=== PATIENT | male | born 1955 | race Caucasian/White ===

== ENCOUNTER → 2017-02-10 | Outpatient (CLI) | payer BC ==
[~2017-02-10] MED LIST: IBUP-1050 PO
[2017-02-10 17:42] LABS: ALT/SGPT 28 U/L (12-78); BLOOD UREA NITROGEN 16 mg/dl (7-18); BUN/CREATININE RATIO 16.2 (10-20); CALCIUM 8.8 mg/dl (8.5-10.1); CARBON DIOXIDE 28 mmol/L (21-32); CHLORIDE 108 mmol/L (98-107); CHOLESTEROL 218 mg/dl (0-200); CREATININE 0.99 mg/dl (0.60-1.40); GLUCOSE 98 mg/dl (70-99); POTASSIUM 4.2 mmol/L (3.5-5.1); SODIUM 139 mmol/L (136-145)
[2017-02-10 17:53] LABS: ALB/GLOB RATIO 1.1 (0.9-2); ALKALINE PHOSPHATASE 58 U/L (45-117); AST/SGOT 17 U/L (15-37); CHOLESTEROL/HDL RATIO 5.1; HDL CHOLESTEROL 43 mg/dl; LDL CHOLESTEROL CALCULATED 152 mg/dl; THYROID STIMULATING HORMONE 0.536 uIu/ml (0.300-4.500); TRIGLYCERIDES 115 mg/dl (0-150); VERY LOW DENSITY LIPOPROT CALC 23 mg/dl
== END | disposition home or self-care (01) ==
LOC: C.LABBFT 11:36
PROVIDERS: ATTEND Physician Assistant Medical
DX: E78.00 Pure hypercholesterolemia, unspecified (principal); Z12.5 Encounter for screening for malignant neoplasm of prostate

== ENCOUNTER → 2017-02-14 | Outpatient (CLI) | payer BC ==
--- NOTE | 2017-02-14 13:19 | DIAGNOSTIC IMAGING REPORT ---
RIGHT SHOULDER 3 VIEWS HISTORY: Right shoulder pain. COMPARISON: None. FINDINGS: There is no fracture or dislocation. Soft tissues are unremarkable. The right clavicle is intact. Mild osteoarthritis within the glenohumeral and acromioclavicular joints demonstrated by mild cartilage space narrowing and small marginal osteophytes. IMPRESSION: No fractures. Mild osteoarthritis within the right shoulder. Electronically signed by: Brandin Lorenz M.D. 02/14/2017 1:18 PM Dictated Date/Time: 02/14/2017 1:17 PM
== END | disposition home or self-care (01) ==
LOC: C.RAD 12:44
PROVIDERS: ATTEND Physician Assistant Medical
DX: M25.511 Pain in right shoulder (principal)

== ENCOUNTER → 2017-10-05 | Outpatient (CLI) | payer OTHER | END | disposition home or self-care (01) | LOC: C.LABBFT 11:39 | PROVIDERS: ATTEND Physician Assistant Medical | DX: E78.00 Pure hypercholesterolemia, unspecified (principal) ==

== ENCOUNTER → 2017-11-16 | Outpatient (CLI) | payer OTHER | END | disposition home or self-care (01) | LOC: C.PATHSPEC 17:30 | PROVIDERS: ATTEND Plastic Surgery | DX: L83 Acanthosis nigricans (principal); L57.8 Other skin changes due to chronic exposure to nonionizing radiation ==

== ENCOUNTER → 2018-02-08 | Day surgery (SDC) | payer OTHER ==
[2018-02-06 08:39] VITALS: BMI 31.0
[~2018-02-08] VITALS: Ht 182.9 cm; Wt 105.9 kg
[~2018-02-08] MED LIST changes: +ACET-1256 PO; -IBUP-1050 PO; +LIDOCAINE HCL 2% 2 ML VIAL (20MG/ML) ONE; +NAPR1TAB9 PO; +ONDANSETRON INJ 2 MG/ML 2 ML VIAL ONE; +PROPOFOL IV EMULSION 10 MG/ML 20 ML VIAL ONE; +SODIUM CHLORIDE 0.9% 500ML 500 ML IV ONE
[2018-02-08 12:24] VITALS: Ht 182.9 cm; Wt 105.9 kg
--- NOTE | 2018-02-08 12:45 | Endo History and Physical ---
History & Physical Date of Service: Feb 08, 2018. Chief Complaint: HX OF POLYPS Referring Physician: DR MASTERS History of Present Illness 62 yo CM who presents for colonoscopy secondary to history of colon polyps. Past Medical History High Cholesterol Past Surgical History Hx Cardiac Surgery: No Hx Internal Defibrillator: No Hx Pacemaker: No Hx Abdominal Surgery: No Hx of Implantable Prosthesis: No Hx Post-Op Nausea and Vomiting: No Hx Cancer Surgery: No Hx Thoracic Surgery: No Hx Orthopedic: No Hx Urinary Tract Surgery: No Family History Colon CA Social History Smoking Status: Never Smoker Hx Substance Use: No Hx Alcohol Use: Yes (APPROX 2-3 BEERS PER A DAY) Allergies Coded Allergies: No Known Drug Allergy (Verified Allergy, Unknown, NKDA, 02/08/18) Current Medications Reported Home Medications Medications Dose Route/Sig Max Daily Dose Days Date Category Aleve (Naproxen) 220 Mg Tab 220 Mg PO DAILY PRN 02/06/18 Reported Tylenol (Acetaminophen) 500 Mg Tab 500 Mg PO Q6 PRN 02/06/18 Reported Vital Signs Weight (Kilograms): 105.91 Height (Feet): 6 Height (Inches): 0 Date Time Temp Pulse Resp B/P (MAP) Pulse Ox O2 Delivery O2 Flow Rate FiO2 02/08/18 12:28 36.8 69 18 129/91 (104) 97 Room Air Physical Exam General Appearance: WD/WN, no apparent distress Respiratory/Chest: Auscultation: breath sounds normal Cardiovascular: Heart Auscultation: RRR Abdomen: Bowel Sounds: normal Inspection & Palpation: soft, non-distended, no tenderness, guarding & rebound Assessment and Plan Assessment: 62 yo CM who presents for colonoscopy secondary to history of colon polyps. Plan: Proceed with colonoscopy.
--- NOTE | 2018-02-08 13:26 | Discharge Instructions ---
Endoscopy Patient Instructions Date / Procedure(s) Performed Feb 08, 2018. Colonoscopy Allergy Information Coded Allergies: No Known Drug Allergy (Verified Allergy, Unknown, NKDA, 02/08/18) Discharge Date / Findings Feb 08, 2018. Colon polyp Diverticulosis Internal hemorroids Medication Instructions OK to resume all medications today as prescribed Reported Home Medications Medications Dose Route/Sig Max Daily Dose Days Date Category Aleve (Naproxen) 220 Mg Tab 220 Mg PO DAILY PRN 02/06/18 Reported Tylenol (Acetaminophen) 500 Mg Tab 500 Mg PO Q6 PRN 02/06/18 Reported Provider Instructions Activity Restrictions - No exercising or heavy lifting for 24 hours. - Do not drink alcohol the day of the procedure. - Do not drive a car or operate machinery until the day after the procedure. - Do not make any important decisions or sign important papers in 24 hours after the procedure. Following Day: - Return to full activity which may include returning to work/school. Diet Start your diet with liquids and light foods (jello, soup, juice, toast). Then eat your usual diet if not nauseated. Treatment For Common After Affects For mild abdominal pain, bloating, or excessive gas: - Rest - Eat lightly - Lie on right side Follow-Up Information Follow-up with DR MASTERS as scheduled Anesthesia Information What You Should Know You have had a procedure that required some medicine to reduce anxiety and discomfort. This treatment is called moderate sedation. After receiving the treatment, you may be sleepy, but you will be able to breathe on your own. The effects of the treatment may last for several hours. Follow these instructions along with Activity/Diet recommendations noted above: * Do NOT do anything where dizziness or clumsiness would be dangerous. * Rest quietly at home today, then you can be up and about tomorrow. * Have a responsible person stay with you the rest of today. * You may have had an I.V. today. If so, you may take the dressing off later today. Recommendations Call your doctor if: * Trouble breathing * Continuous vomiting for more than 24 hours * Temperature above 101 degrees * Severe abdominal pain or bloating * Pain not relieved by pain medicine ordered * There is increased drainage or redness from any incision * A large amount of rectal bleeding greater than 2-3 tablespoons. (If you had a polyp/s removed or have hemorrhoids, a small amount of blood - from the rectum is to be expected.) * You have any unanswered questions or concerns. IN THE EVENT OF A SERIOUS EMERGENCY, GO TO THE NEAREST EMERGENCY ROOM Your discharge instructions were prepared by provider Felix Polo. Patient Instructions Signature Page Aamir Edgaron Patient (or Guardian) Signature/Date: I have read and understand the instructions given to me by my caregivers. Caregiver/RN/Doctor Signature/Date: The above-named patient and/or guardian has received patient instructions on this date. + Original Patient Signature Page (only) stays with chart. Please make copy for patient.
--- NOTE | 2018-02-08 13:50 | Anesthesiology Progress Note ---
Anesthesia Post Op Note Date & Time Feb 08, 2018 at 13:50 Vital Signs Pain Intensity: 0 Vital Signs Past 12 Hours Date Time Temp Pulse Resp B/P (MAP) Pulse Ox O2 Delivery O2 Flow Rate FiO2 02/08/18 13:44 64 16 125/75 (92) 95 Room Air 02/08/18 13:28 65 14 111/63 (79) 94 Room Air 02/08/18 12:28 36.8 69 18 129/91 (104) 97 Room Air Notes Mental Status: alert / awake / arousable, participated in evaluation Pt Amnestic to Procedure: Yes Nausea / Vomiting: adequately controlled Pain: adequately controlled Airway Patency, RR, SpO2: stable & adequate BP & HR: stable & adequate Hydration State: stable & adequate Anesthetic Complications: no major complications apparent
[2018-02-08 14:01] VITALS: BP 120/72; PULSE 58; O2SAT 95
--- NOTE | 2018-02-08 14:40 | GI REPORT ---
Patient Name: Aamir Durham Procedure Date: 02/08/2018 12:56 PM Date of : 1955 Admit Type: Outpatient Age: 62 Gender: Male Attending MD: Felix Polo DO Procedure: Colonoscopy Providers: Felix Polo DO Referring MD: Hari Graf Indications: High risk colon cancer surveillance: Personal history of colonic polyps Medicines: Monitored Anesthesia Care Complications: No immediate complications. Estimated Blood Loss: Estimated blood loss: none. Procedure: Pre-Anesthesia Assessment: - Prior to the procedure, a History and Physical was performed, and patient medications and allergies were reviewed. The patient's tolerance of previous anesthesia was also reviewed. The risks and benefits of the procedure and the sedation options and risks were discussed with the patient. All questions were answered, and informed consent was obtained. Prior Anticoagulants: The patient has taken no previous anticoagulant or antiplatelet agents. ASA Grade Assessment: II - A patient with mild systemic disease. After reviewing the risks and benefits, the patient was deemed in satisfactory condition to undergo the procedure. After I obtained informed consent, the scope was passed under direct vision. Throughout the procedure, the patient's blood pressure, pulse, and oxygen saturations were monitored continuously. The scope was introduced through the anus and advanced to the terminal ileum. The colonoscopy was performed without difficulty. The patient tolerated the procedure well. The quality of the bowel preparation was good. The terminal ileum, ileocecal valve, appendiceal orifice, and rectum were photographed. Findings: The perianal and digital rectal examinations were normal. A 4 mm polyp was found in the sigmoid colon. The polyp was sessile. The polyp was removed with a hot snare. Resection and retrieval were complete. Multiple small-mouthed diverticula were found in the sigmoid colon. Non-bleeding internal hemorrhoids were found during retroflexion. The hemorrhoids were small. Impression: - One 4 mm polyp in the sigmoid colon, removed with a hot snare. Resected and retrieved. - Diverticulosis in the sigmoid colon. - Non-bleeding internal hemorrhoids. Recommendation: - Resume previous diet. - Continue present medications. - Repeat colonoscopy for surveillance based on pathology results. - Return to primary care physician as previously scheduled. Felix Polo DO 02/08/2018 2:40:15 PM This report has been signed electronically. Note Initiated On: 02/08/2018 12:56 PM Number of Addenda: 0 I attest to the content of the Intraoperative Record and orders documented therein, exceptions below {[id number]}
== END | disposition home or self-care (01) ==
LOC: C.GI 12:11
PROVIDERS: ATTEND Internal Medicine
DX: Z12.11 Encounter for screening for malignant neoplasm of colon (principal); K63.5 Polyp of colon; K57.30 Diverticulosis of large intestine without perforation or abscess without bleeding; K64.8 Other hemorrhoids; M19.90 Unspecified osteoarthritis, unspecified site; Z86.010 Personal history of colon polyps; Z68.31 Body mass index [BMI] 31.0-31.9, adult; E66.9 Obesity, unspecified

== ENCOUNTER 2022-07-18 09:36 | Observation (INO) ==
--- NOTE | 2022-06-27 14:44 | PAT Medication Instructions ---
Medication Instructions Date of Service June 27, 2022 Home Medications Medication Instructions Recorded acetic acid 2 % ear solution 5 drp otic (ear) TID 5 days #15 mL 03/09/22 amoxicillin 875 mg-potassium 1 tab PO BID 7 days #14 tabs 03/09/22 clavulanate 125 mg tablet tadalafil 5 mg tablet (Cialis) 5 mg PO DAILY PRN sexual activity 03/28/22 #6 tabs Wheeled Walker #1 ea 06/13/22 methocarbamol 500 mg tablet 500 mg PO TID #20 tabs 06/27/22 acetic acid 2 % ear solution 5 drp otic (ear) TID 5 days amoxicillin 875 mg-potassium clavulanate 125 mg tablet 1 tab PO BID 7 days tadalafil 5 mg tablet (Cialis) 5 mg PO DAILY PRN sexual activity acetaminophen 325 mg tablet (Tylenol) 650 mg PO QID PRN Pain methocarbamol 500 mg tablet 500 mg PO TID rosuvastatin 10 mg tablet (Crestor) 10 mg PO QAM Continue as directed acetic acid 2 % ear solution 5 drp otic (ear) TID 5 days amoxicillin 875 mg-potassium clavulanate 125 mg tablet 1 tab PO BID 7 days STOP taking 24 hours before surgery tadalafil 5 mg tablet (Cialis) 5 mg PO DAILY PRN sexual activity DO NOT take the morning of surgery methocarbamol 500 mg tablet 500 mg PO TID Take morning of surgery With a small sip of water, OTHERWISE NOTHING TO EAT OR DRINK AFTER MIDNIGHT: acetaminophen 325 mg tablet (Tylenol) 650 mg PO QID PRN Pain (if needed) rosuvastatin 10 mg tablet (Crestor) 10 mg PO QAM Take evening before surgery methocarbamol 500 mg tablet 500 mg PO TID acetaminophen 325 mg tablet (Tylenol) 650 mg PO QID PRN Pain (if needed) Other Notes If you have any questions please call us at [phone] or [phone] or [phone] or [phone]
--- NOTE | 2022-07-04 12:18 | Anesthesiology Consultation ---
Date of Service July 04, 2022 Assessment & Plan (1) Encounter for pre-operative examination: - Outpatient joint assessment: Patient is currently scheduled for inpatient pathway. If re-evaluated pending system levels during current pandemic/surgeon requests outpatient pathway, patient is acceptable candidate for outpatient joint program from anesthesia standpoint pending surgeon's office assessment of pt motivation/support/completion of same day joint program preop requirements. Chart Review Chart Review: Acceptable Risk for Surgery and Patient seen in Pre Admission Testing Teaching & Discussion Pre-Anesthesia Teaching/Discussion Notes: Instructed NPO after midnight before surgery, except medications with 15 cc of water. Medication instructions provided according to the PAT guidelines. History Surgery Operation Date: 07/18/22 10:40 Proposed Procedures p Right Total Knee Arthroplasty - Brett Toney MD Height/Weight Height: 6 ft 1 in Weight: 107.955 kg Allergies Allergy/AdvReac Type Severity Reaction Status Date / Time No Known Drug Allergies Allergy Unknown NKDA Verified 06/27/22 10:47 Medications Home Medications Medication Instructions Recorded Confirmed Last Taken tadalafil 5 mg tablet (Cialis) 5 mg PO DAILY PRN sexual activity 03/28/22 06/27/22 Unknown #6 tabs Wheeled Walker #1 ea 06/13/22 06/13/22 Unknown acetaminophen 325 mg tablet 650 mg PO QID PRN Pain 06/27/22 06/27/22 Unknown (Tylenol) methocarbamol 500 mg tablet 500 mg PO TID #20 tabs 06/27/22 Unknown rosuvastatin 10 mg tablet (Crestor) 10 mg PO QAM 06/27/22 06/27/22 Unknown Past Medical History Medical History (Updated 07/04/22 @ 12:38 by Bobbi Cook PA-C) GERD (gastroesophageal reflux disease) rare, controlled, stable per pt Gout hx of History of COVID-11 Feb 2022 > mild symptoms Hypercholesteremia Tubular adenoma of colon (2009) Patient denies h/o stroke, seizures, heart attack, heart failure, DM, HTN, blood clots or blood transfusions. Exercise / Class Metabolic Activity II 4-5 Yardwork/Stairs/Walk up hill (denies CP or SOB with 1 FOS) Past Family History Family History Father Bladder cancer Alzheimer disease Grandfather Acute myocardial infarction Myocardial infarction Uncle Acute myocardial infarction Son Testicular cancer Brother Colon cancer Denies family history of Ovarian cancer Prostate cancer Breast cancer Past Surgical History Surgical History History of colonoscopy (02/08/18) Dr Christ, one hyperplastic polyp, repeat 5 years due to 4 adenomas in 2009 and brother with colon CA History of tonsillectomy History of tooth extraction Past Anesthesia History No Hx of Anesthesia Complications and No Family Hx of Anesthesia Complications History of PONV No Hx of PONV and No Hx of Motion Sickness Social History Smoking Status: Never smoker Do You Dip or Chew Tobacco: No (hx of ) Hx Alcohol Use: Yes Alcohol type: beer alcohol intake frequency: a few times a week Hx Substance Use: No substance use type: does not use Review of Systems Snoring, denies witnessed apneas. Patient denies chest pain, shortness of breath, dyspnea on exertion, fever, chills, cough, wheezing, or palpitations. Physical Exam Vital Signs Vitals BP 134/77 P 66 TEMP 98.4 SP02 98% on RA RESP 18 Physical Full cervical extension range of motion without pain TMD < 3 finger breadths Mallampati Score 2 Dentition: several loose crowns; denies chipped teeth, implants or bridges Lungs: normal respiratory effort. Clear throughout to auscultation, no adventitious breath sounds Cardiac: regular rate and rhythm, no murmurs noted Carotid arteries: negative bruit bilat Lab Results Anesthesia Preop Results Results Anesthesia Widget: WBC 4.63 K/ul (4.8-10.8) L 07/04/22 Hgb 14.2 g/dl (14.0-18.0) 07/04/22 Hct 40.5 % (40.1-51.0) 07/04/22 Plt 167 K/uL (130-400) 07/04/22 Na 140 mmol/L (136-145) 07/04/22 K 3.9 mmol/L (3.5-5.1) 07/04/22 Cl 107 mmol/L (98-107) 07/04/22 CO2 30 mmol/L (21-32) 07/04/22 BUN 15 mg/dl (6-23) 07/04/22 Creat 0.90 mg/dl (0.6-1.4) 07/04/22 Glucose Level 131 mg/dl (70-99(Fasting)) H 07/04/22 PT 11.1 Seconds (9.0-12.0) 07/04/22 PTT 27.9 Seconds (21.0-31.0) 07/04/22 INR 1.0 (0.9-1.1) 07/04/22 Blood Type O Negative 07/04/22 Antibody Screen NEGATIVE 07/04/22 Testing Electrocardiogram Date: 07/04/22 NSR, rate 62 bpm Chest X-Ray Date: 07/04/22 Lung volumes are normal. Lungs are clear. There is no pneumothorax or pleural effusion. Cardiac size is normal. Mediastinal contours are normal. There is no evidence for pulmonary edema. IMPRESSION: No acute cardiopulmonary findings. COVID-19 Risk Screen Screening Information COVID-19 Screen Date: 07/04/22 Exposure 21 Days Family/Household +COVID Last 21 Days: No Exposure 10 Days Any COVID Exposure Last 10 Days: No Symptoms Last 10 Days Experienced COVID Sx Last 10 Days: No + COVID 0-90 Days COVID + in Last 0-90 Days: No
--- NOTE | 2022-07-15 11:53 | History and Physical Report ---
DATE OF ADMISSION: 07/18/2022. CHIEF COMPLAINT: Persistent right knee pain, discomfort and swelling. HISTORY OF PRESENT ILLNESS: The patient is a 67-year-old gentleman who presents for surgical treatme nt of his right knee. He has about a year and a half history of progressively increasing right knee pain and discomfort and recurrent swelling. We had his knee aspirated and injected on multiple visit s, which has become less successful over time. The knee continues to swell up. He has had extensive workup including infection and crystal analysis, which has been negative along with a Lyme test. He now like to have his knee fixed. PAST MEDICAL HISTORY: Significant for: 1. Alcohol use, 8-10 drinks per week. 2. Low back pain/sciatica. PAST SURGICAL HISTORY: None. ALLERGIES: None. CURRENT MEDICATIONS: Include: 1. Rosuvastatin. 2. Calcium. SOCIAL HISTORY: A 67-year-old male. Fairly active. Does not smoke. 8-10 drinks per week. FAMILY HISTORY: Noncontributory. REVIEW OF SYSTEMS: Negative for diabetes, neurologic problem, vascular problem, or bleeding disorder s. No chest pain or shortness of breath. No history of DVT or PE. PHYSICAL EXAMINATION: GENERAL: Shows a pleasant middle-aged male. Looks pretty good health. Looks younger than his state d age. HEENT: Benign. NECK: Supple. No lymphadenopathy. LUNGS: Clear to auscultation. HEART: Regular rate and rhythm. ABDOMEN: Soft, nontender, nondistended. EXTREMITIES: Grossly neurovascularly intact except as follows. Examination of the right knee reveals the patient walks independently with minimal if any limp. He w alks a little bit stiff legged. He has got a tense effusion in his knee. Range of motion is 0-90 de grees, limited by the tense ____ effusion. No instability. No pain with hip motion. X-RAYS: Four views of the knee were reviewed. It shows advanced right knee degenerative joint disea se. He has got near complete loss of his medial joint space. This has progressed since his previous films. ASSESSMENT: A 67-year-old male with recurrent right knee pain and discomfort, swelling and effusions , unresponsive to conservative care. X-rays have showed progressive knee arthritis. His infectious workup was negative for ____ crystalline disease. He would like to have his knee fixed. PLAN: We will take him to the operating room and do a right total knee replacement. The risks and b enefits of this procedure were explained to the patient and include but not limited to DVT, PE, , infection, neurological injury, vascular injury, bleeding problem, pain, limited range of motion, s tiffness, failure to relieve symptoms, incomplete relief of symptoms, etc. The patient understands a nd desires to proceed. Informed consent was obtained. He does have significant alcohol use. We may need DVT prophylaxis. He is planning to be discharged to home using [facility] program. Job ID: [id number]
[~2022-07-18 09:36] MED LIST changes: -ACET-1256 PO; +ACETAMINOPHEN 500 MG TAB PO SCH; +BUPIVACAINE 0.5 % 5 MG/1 ML PF 10ML VIAL ONE; +BUPIVACAINE LIPOSOME/PF 266 MG, BUPIVACAINE/EPINEPHRINE 50 ML, SODIUM CHLORIDE 0.9% 30 ... INFIL SCH; +CeleBREX 200 MG CAP PO SCH; +FAMOTIDINE 20 MG TAB PO SCH; -LIDOCAINE HCL 2% 2 ML VIAL (20MG/ML) ONE; +LR 500ML BOLUS, THEN 15ML/HR IV SCH; +LR 60ML/HR IV SCH; +METOCLOPRAMIDE HCL 10 MG TABLET PO SCH; -NAPR1TAB9 PO; -ONDANSETRON INJ 2 MG/ML 2 ML VIAL ONE; -PROPOFOL IV EMULSION 10 MG/ML 20 ML VIAL ONE; +ROPIVACAINE 0.5% 5 MG/ML 30 ML VIAL ONE; -SODIUM CHLORIDE 0.9% 500ML 500 ML IV ONE; +Scopolamine 1 MG TDSY TD SCH; +TRANEXAMIC ACID 1,000 MG **IV Intra-op IV SCH; +ceFAZolin 2000MG 2,000 MG/15 ML SYR IV SCH
[2022-07-18] MEDS ORDERED: MIDAZOLAM HCL 1 MG/ML 2ML VIAL ONE (09:59)
[2022-07-18] MEDS ORDERED: BUPIVACAINE/EPINEPHRINE 0.25% 1:200,000 30 ML VIAL ONE (11:22)
[2022-07-18] MEDS ORDERED: SODIUM CHLORIDE 0.9% PF 50 ML VIAL ONE (11:22)
[2022-07-18] MEDS ORDERED: BUPIVACAINE LIPOSOME 1.3% 266 MG/20 ML VIAL ONE (11:22)
[2022-07-18] MEDS ORDERED: PROPOFOL IV EMULSION 10 MG/ML 20 ML VIAL IV ONE (11:26)
--- NOTE | 2022-07-18 11:29 | History & Physical Bridge Note ---
Date of Service July 18, 2022 History & Physical Bridge Note I have examined the patient, reviewed the History & Physical and in the interval since the performance of the History & Physical I have noted the following changes of clinical significance: no changes noted
[2022-07-18] MEDS ORDERED: LIDOCAINE 2% MPF LOCAL 5 ML VIAL INFIL ONE (13:12)
--- NOTE | 2022-07-18 13:35 | Operative Report ---
PG Post Operative Report Pre & Post Diagnosis Operation Date: 07/18/22 12:30 Pre-Op Diagnosis: Right Knee Degenerative Joint Disease Post-Op Diagnosis: Right Knee Degenerative Joint Disease I identified the patient and participated in the time-out.: Yes Procedure Operation Date: 07/18/22 12:30 Actual Procedures p Right Total Knee Arthroplasty(Right) - Brett Toney MD Surgeon Brett Toney MD Recreation Programmer Chuy Arce PA-C Estimated Blood Loss 50 Findings Consistent with Post-Op Diagnosis Operative findings revealed advanced right knee DJD. He had a pretty extensive grade 4 [id number] disease of the medial compartment. He had some spotty grade 4 changes of the lateral and patellofemoral compartments. He had a varus deformity to his knee. Very large benign-appearing knee joint effusion. Fluids 1200 cc Specimens Right knee sent for pathology Drains None Complications none Disposition Accompanied Patient To Recovery: No Indications Patient is 67-year-old very active gentleman has had a several year history of increasing right knee pain discomfort is got significant worse over the past 6 months. She had recurrent effusions and which are unresponsive conservative care. X-rays show progressive medial compartment arthritis. He elected proceed with surgical treatment. He did have an extensive work-up for inflammatory type diseases which was all negative. Description of Procedure Operative implants consist of: 1 Biomet Vanguard size 75 right posterior stabilized femoral component. 2. Biomet size 70 tibial tray. 3. 12 mm posterior stabilized polyethylene insert. 4. 34 x 8 and half all Paller patella. The patient was taken the operating, identified, placed on the operating table supine position. All contact areas were appropriately padded. IV antibiotics arrived by anesthesia team. Spinal anesthetic was implemented along with an abductor canal block in the holding area. Massey catheter was placed in sterile fashion. Right thigh tourniquet was then placed. The right lower extremity was then prepped and draped in the usual sterile fashion. The right leg was elevated and exsanguinated with use of an Esmarch and the tourniquet was placed at 300 mmHg. An anterior approach of the right knee was then performed to longitudinal incision centered over the patella. Sharp dissection was carried through subcutaneous tissue down the extensor mechanism. A medial parapatellar arthrotomy incision was made. Some subperiosteal dissection was carried out medially. The fat pad was resected from Neath patella tendon. Lateral patellofemoral ligament was released. Patella subluxated laterally and the knee was flexed. The osteophytes were taken off distal femur. The ACL and PCL were then released from distal femur the tibia subluxated anteriorly. The external tibial alignment jig was then placed the interface the tibia and adjusted 12 mm medially. Proximal tibial cut was made remove about a millimeter or 2 of bone from the most deficient aspect medial tibial plateau. The tibia was then sized to a size 79. We did take some osteophytes off medially. Attention drawn the femur. The distal femur was entered with a sharp drill. Intramedullary canal was suction. A right 6 degree valgus cutting guide was placed. Distal femoral cutting block was pinned in place. Distal femoral cut was made to take an additional 3 mm bone off distal femur. The femur was then sized to a size 75. The AP cutting block was pinned parallel to the epicondylar axis which was 4 degrees of external rotation. The anterior cut, anterior chamfer, posterior cut, posterior chamfer cuts were made. The box cutting guide was placed in a just slight lateral and the box cut was made. The knee was flexed. The remnants of the medial and lateral menisci were excised. The osteophytes were taken off the posterior aspect of the femur. A trial femoral component was placed. The tibial tray was pinned in maximum external rotation and the drill and stem punch were used to create the defect in proximal tibia for the tibial tray. The knee was then trialed and the 12 mm insert fit most appropriately. Attention drawn the patella. Of patella was cleaned of all soft tissues. Patella thickness measured 25 mm in thickness was cut down to 15. Was sized to a size 34 patella. The lug holes were drilled for 34 patella. The lateral osteophytes removed. Patella button was placed. Knee was taken through range of motion patella tracked nicely with no thumbs test. Attention drawn to place the permanent components. All trial components were removed. Bone plug was placed in the distal femur limit blood loss. A double batch Palacos G cement was mixed. BiomWonoloard size 75 right posterior stabilized femoral component, size 79 tibial tray, a 12 mm posterior stabilized polyethylene insert, and a 34 x 8 and half all Paller patella then cemented in place. Knee was brought out into full extension until cement hardened. Final cement check was then performed. Pericapsular tissues were injected with total 100 cc of combination of 20 cc of Exparel, 30 cc normal saline, 50 cc of quarter percent Marcaine with epinephrine. Patient did receive 1 g tranexamic acid. The tourniquet was then let down for final turn time of 60 minutes. Hemostasis reduced electrocautery. The extensor mechanism closed with combination 1 PDS suture #1 Vicryl suture in [id number] fashion. Extensor mechanism checked and found to be intact with subcutaneous tissue then closed with 2 Dexon suture in buried interrupted fashion skin was closed skin roxana. Leg was then cleaned and dried a sterile dressing was Xeroform, 4 x 4's, sterile cast padding, Omari bandage were applied. Patient then transferred to the recovery room in stable condition. Patient tolerated the procedure well and there were no complications. Chuy Arce, my physician editorial assistant, was present for the entire procedure. His assistance was essential and required for appropriate patient positioning, prepping and draping, surgical exposure, performing the technical details of the operation, placement the implants, closure of the wound, and placement of the sterile bandage. I attest to the content of the Intraoperative Record and any orders documented therein. Any exceptions are noted below.
[2022-07-18] MEDS ORDERED: chlordiazePOXIDE HCl 25 MG CAP PO PRN (13:43)
--- NOTE | 2022-07-18 13:58 | Anesthesiology Progress Note ---
Date of Service July 18, 2022 Anesthesia Post Procedure Vital Signs Vital Signs: Temp Pulse Pulse Resp BP Pulse Ox O2 Del Method 07/18/22 13:50 70 20 96/75 L 98 Oxymask 07/18/22 13:40 72 15 102/62 99 Oxymask 07/18/22 13:34 36.2 C L 80 14 104/59 L 98 Oxymask 07/18/22 10:10 36.7 C 66 18 152/98 H 96 Room Air O2 Flow Rate 07/18/22 13:50 5 07/18/22 13:40 5 07/18/22 13:34 9 07/18/22 10:10 Pain Intensity Right Knee: Pain Intensity: 3 Transfer of Care Handoff Completed per policy Notes Mental Status: alert / awake / arousable and participated in evaluation Patient Amnestic to Procedure: Yes Nausea / Vomiting: adequately controlled Pain: adequately controlled Airway Patency, RR, SpO2: stable & adequate BP & HR: stable & adequate Hydration State: stable & adequate Anesthetic Complications: no major complications apparent and Pt Satisfied with anesthetic care
[2022-07-18] MEDS ORDERED: HYDROmorphone INJ 0.5 MG/0.5 ML SYR IV PRN (14:23)
[2022-07-18] MEDS ORDERED: ONDANSETRON INJ 2 MG/ML 2 ML VIAL IV PRN (14:23)
[2022-07-18] MEDS ORDERED: ALUMINUM/MAGNESIUM SUSP 30 ML UDC PO PRN (14:23)
[2022-07-18] MEDS ORDERED: MAGNESIUM HYDROXIDE SUSP 30 ML UDC PO PRN (14:23)
[2022-07-18] MEDS ORDERED: bisacodyL 10 MG SUPP PR PRN (14:23)
[2022-07-18] MEDS ORDERED: NALOXONE HCL 0.4 MG/1 ML VIAL/CARP IV PRN (14:23)
[2022-07-18] MEDS ORDERED: METOCLOPRAMIDE HCL INJ 5 MG/ML 2 ML VIAL IV PRN (14:23)
--- NOTE | 2022-07-18 14:53 | XRay Report ---
RIGHT KNEE 2 VIEWS History: Right total knee arthroplasty. Degenerative arthritis. Postop. FINDINGS: The patient is status post a right total knee arthroplasty. The hardware is intact. No frac ture or dislocation. Skin roxana are in place. IMPRESSION: Right total knee arthroplasty. No evidence for hardware complication. ACT 112: Negative or not required by law. Electronically signed by: Brandin Lorenz M.D. 07/18/2022 2:52 PM
[2022-07-18] MEDS: ACETAMINOPHEN 500 MG TAB PO SCH ×2 (15:08→21:23)
[2022-07-18] MEDS: METHOCARBAMOL 500 MG TABLET PO SCH ×2 (15:10→21:24)
[2022-07-18] MEDS: KETOROLAC TROMETHAMINE 15 MG/ML VIAL IV SCH ×2 (15:10→21:22)
[2022-07-18] MEDS: oxyCODONE HCL IR 5 MG TAB (IMMEDIATE RELEASE) PO PRN ×2 (17:18→21:22)
[2022-07-18] MEDS: ASCORBIC ACID 500 MG TAB PO SCH (17:18)
[2022-07-18] MEDS: Scopolamine CHECK PATCH PLACEMENT SCH ×2 (17:45→23:56)
[2022-07-18] MEDS ORDERED: TRANEXAMIC ACID / 0.7% NACL 1,000 MG/100 ML BAG IV SCH (19:30)
[2022-07-18] MEDS: SODIUM CHLORIDE 0.9% 1000ML 1,000 ML IV SCH (19:31)
[2022-07-18] MEDS: ceFAZolin 2000MG 2,000 MG/15 ML SYR IV SCH (19:34)
[2022-07-18] MEDS ORDERED: SENNA 8.6 MG TAB PO SCH (21:00)
[2022-07-18] MEDS: ASPIRIN 81 MG ECTAB PO SCH (21:23)
[2022-07-18] MEDS: DOCUSATE SODIUM/SENNA 50/8.6MG TAB PO SCH (21:23)
[2022-07-18] MEDS: DOCUSATE SODIUM 100 MG CAP PO SCH (21:24)
[2022-07-19] MEDS: SODIUM CHLORIDE 0.9% 1000ML 1,000 ML IV SCH (02:15)
[2022-07-19] MEDS: ceFAZolin 2000MG 2,000 MG/15 ML SYR IV SCH (02:59)
[2022-07-19] MEDS: KETOROLAC TROMETHAMINE 15 MG/ML VIAL IV SCH ×2 (02:59→08:34)
[2022-07-19] MEDS: ACETAMINOPHEN 500 MG TAB PO SCH (05:27)
[2022-07-19 07:04] LABS: Calcium 8.5 mg/dl (8.5-10.1); Potassium 3.9 mmol/L (3.5-5.1)
[2022-07-19 07:10] LABS: BUN Creatinine Ratio 19.8 (10-20); Creatinine Clr Calc Pharmacy 92.3 ml/min; Est GFR (African American) 93.1 ml/min; Est GFR (Non-African American) 80.3 ml/min
[2022-07-19 07:15] LABS: Hematocrit (blood only) 35.3 % (40.1-51.0); Hemoglobin 12.3 g/dl (14.0-18.0); Mean Corpuscular Hemoglobin 31.5 pg (25.0-34.0); Mean Corpuscular Hgb Conc 34.8 g/dL (32.0-36.0); Mean Corpuscular Volume 90.5 fL (80.0-100.0); Mean Platelet Volume 10.1 fL (9.4-12.4); Platelet Count 141 K/uL (130-400); RDW Coefficient of Variation 11.8 % (11.5-14.5); RDW Standard Deviation 38.7 fL (36.4-46.3); White Blood Count 7.39 K/ul (4.8-10.8)
[2022-07-19] MEDS ORDERED: dexAMETHasone 10 MG in SYRINGE 0 ML IV SCH (08:00)
[2022-07-19] MEDS: Scopolamine CHECK PATCH PLACEMENT SCH (08:32)
[2022-07-19] MEDS: DOCUSATE SODIUM/SENNA 50/8.6MG TAB PO SCH (08:33)
[2022-07-19] MEDS: METHOCARBAMOL 500 MG TABLET PO SCH (08:33)
[2022-07-19] MEDS: ASPIRIN 81 MG ECTAB PO SCH (08:33)
[2022-07-19] MEDS: ASCORBIC ACID 500 MG TAB PO SCH (08:33)
[2022-07-19] MEDS: DOCUSATE SODIUM 100 MG CAP PO SCH (08:33)
[2022-07-19] MEDS ORDERED: ROSUVASTATIN CALCIUM 10 MG TAB PO SCH (09:00)
[2022-07-19] MEDS ORDERED: MULTIVITAMIN TAB PO SCH (09:00)
[2022-07-19] MEDS ORDERED: FOLIC ACID 1 MG TAB PO SCH (09:00)
[2022-07-19] MEDS ORDERED: THIAMINE HCL 50 MG TABLET PO SCH (09:00)
[2022-07-19] MEDS ORDERED: TAMSULOSIN HCL 0.4 MG CAP PO SCH (09:00)
--- NOTE | 2022-07-19 09:46 | Progress Notes ---
DATE OF SERVICE: 07/19/2022. SUBJECTIVE: A 67-year-old gentleman, postoperative day 1 from a right knee replacement. He is doing pretty well. Pain is controlled. He has got a little dizzy last night when he first got up, but do ing better this morning. No chest pain or shortness of breath. Not feeling dizzy or lightheaded. OBJECTIVE: VITAL SIGNS: Temperature 36.7. Vital signs are stable. GENERAL: Shows a pleasant middle-aged male. He is sitting up in bed and looks comfortable. LUNGS: Clear to auscultation. HEART: Regular rate and rhythm. ABDOMEN: Soft, nontender, nondistended. EXTREMITIES: Grossly neurovascularly intact except as follows. Examination of the right leg reveals the dressing to be clean, dry and intact. He can dorsiflex and plantarflex his foot appropriately. He has got brisk refill. LABORATORY DATA: Hemoglobin 12.3. Hematocrit 35.3. Electrolytes are stable. ASSESSMENT: A 67-year-old gentleman postoperative day 1 from right knee replacement, doing pretty we ll. His pain is controlled. He is neurologically intact. PLAN: 1. DVT prophylaxis includes thigh-high TEDs, SCDs, and aspirin twice a day. 2. PT/OT, weightbear as tolerated. Right total knee protocol. 3. Pain control, doing okay with current pain regimen. 4. Disposition. Plan is to discharge home with some home health if he does okay in therapy today. Job ID: [id number]
[2022-07-19] MEDS: oxyCODONE HCL IR 5 MG TAB (IMMEDIATE RELEASE) PO PRN (11:43)
--- NOTE | 2022-07-24 10:16 | Discharge Summary ---
Date of Service July 24, 2022 Discharge Data Procedures Performed Operation Date: 07/18/22 12:30 Actual Procedures p Right Total Knee Arthroplasty(Right) - Brett Toney MD Hospital Course (1) Status post total right knee replacement: This is a 67 year old patient admitted on 07/18/22 and underwent total knee arthroplasty. He tolerated the procedure well and there were no complications. Transferred to the PACU post op and later to the orthopedic floor for further care. He was given ancef for antibiotic prophylaxis. He was also given RAIMUNDO stockings, SCDs, and aspirin for DVT prophylaxis. Hemoglobin, hematocrit, and vital signs were monitored during his hospital stay and remained stable. Did not require any blood transfusions. There were no complications during his hospital stay. By post op day #1 the patient was tolerating a regular diet, pain was reasonably controlled with oral pain medicine, and he was participating in physical therapy. On post op day #1 the patient was discharged home and set up with home health care. He was given printed discharge instructions including prescriptions for extra strength tylenol, aspirin, ketorolac, cefadroxil, zofran, senokot, flomax, and oxycodone. Continue physical therapy, weight bearing as tolerated. Continue RAIMUNDO stockings. Follow up approximately 2 weeks post op or sooner if there are problems or concerns. Coding Level of Care Code None Diagnoses Status post total right knee replacement Z96.651
== END 2022-07-19 12:47 | disposition home health service (06) ==
LOC: ASU 09:36 → 3E 09:36